=== PATIENT | female | born 1955 | race Hispanic/Latino ===

== ENCOUNTER 2020-12-14 15:21 | Outpatient (CLI) | payer MEDICARE, SELFPAY ==
--- NOTE | ~2020-12-14 | MM_ITS ---
EXAMINATION: MM screening christina BI w han HISTORY: Screening TECHNIQUE: Craniocaudal and mediolateral oblique 3-D tomosynthesis images were obtained and synthetic 2-D images were generated. CAD analysis was submitted and interpreted. COMPARISON: 11/13/2018 BREAST PARENCHYMAL COMPOSITION: There are scattered areas of fibroglandular density. FINDINGS: There is no evidence of suspicious mass, calcification, or architectural distortion to sugg est malignancy in either breast. There has been no suspicious interval change. IMPRESSION: 1. No mammographic evidence of malignancy. 2. Recommend routine screening mammography in one year. BI-RADS Category 1: Negative Reviewed, dictated and finalized at location A.
== END 2020-12-14 15:22 | disposition home or self-care (01) ==
LOC: ANHIMG 15:32
PROVIDERS: PCP Family Medicine; Visit Provider Physician Assistant
DX: Z12.31 Encounter for screening mammogram for malignant neoplasm of breast (principal)
CPT/HCPCS: 77063; 77067

== ENCOUNTER 2021-03-06 18:40 | Emergency (ER) | payer MEDICARE, SELFPAY ==
[2021-03-06 18:59] VITALS: BP 153/73; PULSE 78; RESP 18; TEMP 37.2; O2SAT 100
[2021-03-06 19:02] VITALS: BP 153/73; PULSE 78; RESP 18; TEMP 37.2; O2SAT 100
--- NOTE | 2021-03-06 19:07 | ED.GENADULT ---
HPI - General Adult General Chief complaint: Medical Clearance Stated complaint: Blood Pressure Source: patient and RN notes reviewed Limitations: no limitations History of Present Illness HPI narrative: The non-smoker/nondrinker patient-- on several meds including for HTN, HLD-- presents with elevated blood pressure and headache. Patient has about a day long history, gradual onset of mild frontal and bitemporal headache with associated with systolic blood pressures in the 150s. No fever, URI, noncompliance[losartan dose is 80 ], speech?visual changes, lateralizing weakness, seizure . She did decrease [by half ] her losartan earlier in the year; she is concerned about her blood pressure. Her neurologic history is remarkable is that while residing in [place] years ago she was placed on antiepileptic medications, and had head CT then for unknown diagnosis. Vital signs remarkable for blood pressure systolics 150-180s / 70-80s Related Data Home Medications Medication Instructions Recorded Confirmed levetiracetam 250 mg PO DAILY 03/06/21 03/06/21 levothyroxine [Euthyrox] 25 mcg PO DAILY 03/06/21 03/06/21 simvastatin 20 mg PO DAILY 03/06/21 03/06/21 valsartan 80 mg PO DAILY 03/06/21 03/06/21 Allergies Allergy/AdvReac Type Severity Reaction Status Date / Time diclofenac Allergy Unknown Other Verified 03/06/21 18:49 fluconazole Allergy Unknown Other Verified 03/06/21 18:49 Review of Systems Review of Systems: General/Constitutional: No weight loss,fever Eyes: N0: Redness,discharge Ears/Nose/Throat: No: Epistaxis,ear discharge Respiratory: Denies: Hemoptysis Gastrointestinal: No Vomiting, Bleeding-rectal Skin: No Lumps, eruption Neurologic: No Focal Weakness,Sz Hematologic: Denies: Petechiae/Purpura Psychiatric: No: Suicida ideationl All Other Systems: Reviewed and Negative [facility] Comments At time of signature, agree with nursing past medical, surgical, social and family history. There is no relevant family history pertinent to the presenting complaint Exam Narrative: General Appearance: Well appearing, No distress EYE: PERRLA, Conjunctiva clear Ears: External ear normal Nose: Normal nose Mouth/Throat: Normal appearing, Normal lips Neck: Supple Respiratory: Airway patent, No respiratory distress Cardiovascular: RRR Abdomen: Soft, Non-tender, Musculoskeletal: Full ROM Skin: Warm, Dry Neurological: A&O x3, CN II-X intact Psychiatric: Normal mood, Normal affect Course Vital Signs Vital signs: Vital Signs Temperature 98.9 F 03/06/21 18:59 Pulse Rate 78 03/06/21 18:59 Respiratory Rate 18 03/06/21 18:59 Blood Pressure 153/73 H 03/06/21 18:59 Pulse Oximetry 100 03/06/21 18:59 Temperature 98.9 F 03/06/21 19:02 Pulse Rate 78 03/06/21 19:02 Respiratory Rate 18 03/06/21 19:02 Blood Pressure 153/73 H 03/06/21 19:02 Pulse Oximetry 100 03/06/21 19:02 Medical Decision Making Vital Signs Vital Signs: Vital Signs Temperature 98.9 F 03/06/21 18:59 Pulse Rate 78 03/06/21 18:59 Respiratory Rate 18 03/06/21 18:59 Blood Pressure 153/73 H 03/06/21 18:59 Pulse Oximetry 100 03/06/21 18:59 Temperature 98.9 F 03/06/21 19:02 Pulse Rate 78 03/06/21 19:02 Respiratory Rate 18 03/06/21 19:02 Blood Pressure 153/73 H 03/06/21 19:02 Pulse Oximetry 100 03/06/21 19:02 Discharge Plan Discharge Clinical Impression: Labile hypertension, Headache disorder Patient Disposition: Home, Self-Care Condition: Stable Instructions: Acute Headache (ED), Hypertension (ED) Additional Instructions: See your PMD regarding blood pressure and headache follow-up You may continue your valsartan, taking an additional half dose for persistent elevations of home blood pressures You declined hospital/CT scanning referral made but may return there anytime if worsens Prescriptions: New ncjggxvbur-[id number]-ofgg [Fioricet] 50-300-40 mg capsule
== END 2021-03-06 19:44 | disposition home or self-care (01) ==
PROVIDERS: Emergency Provider Emergency Medicine
DX: I10 Essential (primary) hypertension (principal); R51.9 Headache, unspecified; E78.00 Pure hypercholesterolemia, unspecified; G40.909 Epilepsy, unspecified, not intractable, without status epilepticus
CPT/HCPCS: 99213; G0463

== ENCOUNTER 2021-03-22 10:37 | Outpatient (CLI) | payer MEDICARE, SELFPAY ==
[2021-03-22 11:29] LABS: Alanine Aminotransferase 27 U/L (4-35); Albumin Level 4.7 g/dL (3.5-5.1); Alkaline Phosphatase 76 U/L (38-126); Anion Gap 9 mmol/L (8-16); Aspartate Amino Transferase 34 U/L (14-36); Bilirubin,Total 0.5 mg/dL (0.2-1.3); Blood Urea Nitrogen 8 mg/dL (7-17); Calcium 9.2 mg/dL (8.4-10.2); Carbon Dioxide 26 mmol/L (22-30); Chloride 104 mmol/L (98-107); Cholesterol 179 mg/dL (0-200); Estimated Glomerular Filt Rate > 60; Glucose 109 mg/dL (65-110); HDL Direct 59 mg/dL; Potassium 3.9 mmol/L (3.4-5.0); Sodium 139 mmol/L (137-145); Triglycerides 217 mg/dL (<150)
[2021-03-22 11:40] LABS: LDL Cholesterol Direct 80 mg/dL
== END 2021-03-22 10:38 | disposition home or self-care (01) ==
PROVIDERS: PCP Physician Assistant; Visit Provider Physician Assistant
DX: R73.03 Prediabetes (principal); I10 Essential (primary) hypertension; E03.9 Hypothyroidism, unspecified
CPT/HCPCS: 36415; 80053; 80061; 83036; 84443

== ENCOUNTER 2021-05-31 16:40 | Emergency (ER) | payer MEDICARE, MEDICAID, SELFPAY ==
--- NOTE | ~2021-05-31 | XR_ITS ---
EXAMINATION: XR chest 1V portable INDICATION: Chest pain TECHNIQUE: Portable AP chest at 2012 hours COMPARISON: 06/30/2015 FINDINGS: The lungs are free of acute opacities. There is no pleural effusion or pneumothorax. The ca rdiomediastinal silhouette is normal. IMPRESSION: 1. No acute cardiopulmonary abnormality. Reviewed, dictated and finalized at location F. WORKER
--- NOTE | ~2021-05-31 | CT_ITS ---
EXAMINATION: CT abdomen pelvis w con INDICATION: Right upper quadrant pain TECHNIQUE: Computed tomographic images of the abdomen and pelvis were obtained after the administrati on of 100 cc of Omnipaque 350 intravenous contrast. The dose-length product (DLP) was 544.86 mGy-cm. Automated exposure control and iterative reconstruction technique were employed. COMPARISON: 06/18/2013 FINDINGS: Minimal dependent atelectasis is present in the lung bases. The heart size is normal. Cysts of the liver measure up to 2.6 cm in the right hepatic lobe. The spleen, pancreas, gallbladder, and adrenal glands are normal. The kidneys are unremarkable. The appendix is normal. No pathologically en larged abdominal or pelvic lymph nodes are identified. There is no free intraperitoneal gas or eviden ce of bowel obstruction. A moderate volume of colonic stool is present. There is a moderate amount of formed stool in the distal small bowel, consistent with slow transit. There is moderate lumbar spond ylosis. IMPRESSION: 1. Constipation. Reviewed, dictated and finalized at location F. CLABLE MATERIALS DISTRIBUTOR IMPRESSION: 1. Constipation.
--- NOTE | ~2021-05-31 | CT_ITS ---
EXAMINATION: CT brain wo con INDICATION: Headache COMPARISON: None TECHNIQUE: Standard unenhanced head CT. The dose-length product (DLP) was 605.33 mGy-cm. The mA was a djusted according to patient size. Iterative reconstruction technique was employed. FINDINGS: There is no acute intraparenchymal hemorrhage. No evidence of mass lesion. No evidence of a cute infarction. There is mild periventricular and subcortical hypodensity probably related to small vessel ischemic disease. There is mild prominence of the sulci and ventricles related to cerebral atr ophy. Intracranial calcified cerebral atherosclerosis is noted. There are no extra-axial collections. There is no mass effect or midline shift. The orbits and soft tissues are unremarkable. There is mil d mucosal thickening of the paranasal sinuses. IMPRESSION: 1. No acute intracranial abnormality. 2. Age related findings. Reviewed, dictated and finalized at location F. RVISOR COMMUNICATIONS AND SIGNALS
[2021-05-31 16:45] VITALS: BP 160/88; PULSE 73; RESP 18; TEMP 36.9; O2SAT 100
--- NOTE | 2021-05-31 20:03 | ECG_ITS ---
Measurements Intervals [place] Rate: 65 P: 40 NC: 162 QRS: -35 QRSD: 92 T: 30 QT: 403 QTc: 419 Interpretive Statements SINUS RHYTHM LEFT AXIS DEVIATION BASELINE ARTIFACT- I, III, AVR, AVL, AVF BORDERLINE ECG Electronically Signed On 06-01-2021 6:28:41 CONTACT CLERK by Fab Todd D.O.
--- NOTE | 2021-05-31 20:05 | ED.GENADULT ---
HPI - General Adult General Chief complaint: Headache Stated complaint: BP 155/83 SENT IN BY MD Time Seen by Provider: 05/31/21 19:49 Source: patient and family Mode of arrival: ambulatory Limitations: no limitations History of Present Illness HPI narrative: Patient is 66 years old female brought to the emergency room by her daughter because of elevated blood pressure, frontal headache, right upper quadrant pain for the last 7 days, intermittent. Patient is on losartan, history of hyper tension, hyperlipidemia and hypothyroidism. Currently patient denying any fever, chills, nausea, vomiting, diarrhea, constipation, urinary symptoms, chest pain or shortness of breath. Patient reports getting headaches with elevated blood pressure. Related Data Home Medications Medication Instructions Recorded Confirmed levetiracetam 250 mg PO DAILY 03/06/21 03/06/21 levothyroxine [Euthyrox] 25 mcg PO DAILY 03/06/21 03/06/21 simvastatin 20 mg PO DAILY 03/06/21 03/06/21 valsartan 80 mg PO DAILY 03/06/21 03/06/21 Allergies Allergy/AdvReac Type Severity Reaction Status Date / Time diclofenac Allergy Unknown Other Verified 05/31/21 21:15 fluconazole Allergy Unknown Other Verified 05/31/21 21:15 Review of Systems Review of Systems: CONSTITUTIONAL: Denies fever, chills, or sweats. EYES: Denies visual changes, redness, or discharge. ENT: Denies rhinorrhea, congestion, sore throat, or otalgia. CARDIOVASCULAR: Denies chest pain, palpitations, or edema. RESPIRATORY: Denies cough or dyspnea. GASTROINTESTINAL: Right upper quadrant pain GENITOURINARY: Denies dysuria or hematuria. SKIN: Denies rash or itching. MUSCULOSKELETAL: Denies back pain, joint pain, or myalgia. NEUROLOGIC: Complaining of frontal headache PSYCHIATRIC: Denies anxiety or depression. Exam Narrative: General appearance: Well-developed, well-nourished Skin: Normal color Head: Normocephalic, nontraumatic Eyes: Clear conjunctiva ENT: Oropharynx normal, ears normal, nose normal Neck: Supple, nontender Chest and respiratory: Airway patent, no respiratory distress, no accessory muscle use Heart: Regular rate/rhythm Abdomen: Soft, mild tenderness right upper quadrant, no organomegaly, quiet bowel sounds Vascular: Normal peripheral pulses, normal capillary refill. Musculoskeletal: Normal range of motion, nontender back Neurologic: Alert and oriented ?3, TAXI PROPRIETOR is normal as tested, no gross motor deficit Course Course Emergency Course: Stable Vital Signs Vital signs: Vital Signs Temperature 36.9 C 05/31/21 16:45 Pulse Rate 73 05/31/21 16:45 Respiratory Rate 18 05/31/21 16:45 Blood Pressure 160/88 H 05/31/21 16:45 Pulse Oximetry 100 05/31/21 16:45 Temperature 36.9 C 05/31/21 16:45 Pulse Rate 73 05/31/21 16:45 Respiratory Rate 18 05/31/21 16:45 Blood Pressure 160/88 H 05/31/21 16:45 Pulse Oximetry 100 05/31/21 16:45 Medical Decision Making Vital Signs Vital Signs: Vital Signs Temperature 36.9 C 05/31/21 16:45 Pulse Rate 73 05/31/21 16:45 Respiratory Rate 18 05/31/21 16:45 Blood Pressure 160/88 H 05/31/21 16:45 Pulse Oximetry 100 05/31/21 16:45 Temperature 36.9 C 05/31/21 16:45 Pulse Rate 73 05/31/21 16:45 Respiratory Rate 18 05/31/21 16:45 Blood Pressure 160/88 H 05/31/21 16:45 Pulse Oximetry 100 05/31/21 16:45 Imaging Data My impression: Impressions Chest X-Ray 05/31/21 20:20 IMPRESSION: 1. No acute cardiopulmonary abnormality. Head CT 05/31/21 21:33 IMPRESSION: 1. No acute intracranial abnormality. 2. Age related findings. Abdomen/Pelvis CT 05/31/21 22:14 IMPRESSION: 1. Constip
[2021-05-31 20:51] VITALS: BP 144/70; PULSE 71; RESP 16; O2SAT 100
[2021-05-31 20:58] LABS: Basophils Percent Auto 0.7 % (0.2-1.2); Eosinophils Absolute Auto 0.1 K/mm3 (0-0.3); Eosinophils Percent Auto 2.3 % (0-4.4); Hematocrit 43.3 % (37.0-47.0); Hemoglobin 14.8 g/dL (12.0-15.0); Immature Granulocyte Absolute 0.01 K/mm3 (0.00-0.031); Immature Granulocyte Percent A 0.2 % (0-0.5); Lymphocytes Absolute Auto 2.68 K/mm3 (0.9-3.2); Lymphocytes Percent Auto 44.3 % (18.3-44.2); Mean Corpuscular HGB Conc 34.2 g/dl (32-36); Mean Corpuscular Hemoglobin 31.2 pg (26-34); Mean Corpuscular Volume 91.2 fl (80-100); Mean Platelet Volume 12.1 fl (7.4-10.4); Monocytes Absolute Auto 0.7 K/mm3 (0.1-0.6); Monocytes Percent Auto 11.4 % (2.6-8.5); Neutrophils Absolute Auto 2.5 K/mm3 (1.3-6.7); Neutrophils Percent Auto 41.1 % (45.5-73.1); Platelet Count Result 214 k/mm3 (150-375); Red Blood Count 4.75 M/mm3 (4.2-5.4); Red Cell Distribution Width 12.1 % (11.5-14.5); White Blood Count 6.1 K/mm3 (4.5-10.0)
[2021-05-31 21:01] LABS: Add Urine Microscopic? YES; Appearance Urine Clear (Clear); Bilirubin Urine Negative (Negative); Blood Urine 1+ (Negative); Color Urine Colorless (Yellow); Glucose Urine UA Negative (Negative); Ketones Urine Negative (Negative); Leukocyte Esterase Ur Negative LEU/UL (Negative); Nitrate Urine Negative (Negative); Protein Urine Negative (Negative); Specific Grav Ur 1.005 (1.001-1.035); Urobilinogen Urine Negative mg/dL (<2.0); WBC Urine 0-3 /hpf
[2021-05-31] MEDS: MORPHINE SULFATE (*CRX) 4 MG/ML INJ IV PUSH (21:02)
[2021-05-31] MEDS: SODIUM CHLORIDE 0.9% IV 1,000 ML 999 ML IV CONT (21:03)
[2021-05-31] MEDS: ONDANSETRON INJ 4 MG/2 ML VIAL IV PUSH (21:03)
[2021-05-31 21:08] LABS: Alanine Aminotransferase 28 U/L (4-35); Albumin Level 5.1 g/dL (3.5-5.1); Alkaline Phosphatase 83 U/L (38-126); Anion Gap 12 mmol/L (8-16); Aspartate Amino Transferase 39 U/L (14-36); Bilirubin,Total 0.7 mg/dL (0.2-1.3); Blood Urea Nitrogen 8 mg/dL (7-17); Calcium 9.9 mg/dL (8.4-10.2); Carbon Dioxide 25 mmol/L (22-30); Chloride 102 mmol/L (98-107); Estimated CRCL calculation 78 ml/min; Estimated Glomerular Filt Rate > 60; Glucose 101 mg/dL (65-110); Potassium 4.2 mmol/L (3.4-5.0); Sodium 139 mmol/L (137-145)
[2021-05-31 21:20] LABS: NT Pro B Type Natriuretic Pept 86 pg/mL (5-100); Troponin I < 0.012 ng/mL (0.000-0.034)
[2021-05-31 21:49] LABS: Lipase 115 U/L (23-300)
[2021-05-31 23:11] VITALS: BP 145/76; PULSE 65; RESP 18; O2SAT 100
== END 2021-05-31 23:13 | disposition home or self-care (01) ==
PROVIDERS: Emergency Provider Emergency Medicine; PCP Physician Assistant
DX: I10 Essential (primary) hypertension (principal); R51.9 Headache, unspecified; K59.00 Constipation, unspecified; E78.5 Hyperlipidemia, unspecified; E03.9 Hypothyroidism, unspecified
CPT/HCPCS: 36415; 70450; 71045; 74177; 80053; 81001; 83690; 83880; 84484; 85025; 93005; 96361; 96374; 96375; 99284; J2270; J2405; J7030; Q9967

== ENCOUNTER 2022-03-29 11:16 | Outpatient (CLI) | payer MEDICARE, MEDICAID, SELFPAY ==
--- NOTE | ~2022-03-29 | US_ITS ---
EXAMINATION: US thyroid DATE: 03/29/2022 11:57 INDICATION: Goiter. TECHNIQUE: Multiple ultrasound images of the thyroid were obtained. COMPARISON: None. FINDINGS: The right thyroid lobe measures 3.5 x 1.5 x 1.7 cm. The left thyroid lobe measures 5.3 x 1.5 x 2.7 c m. The thyroid demonstrates heterogeneous echogenicity. Vascularity is normal. In the left thyroid l obe, there is a 3.6 cm solid, hyperechoic, wider than tall nodule with smooth margin without echogeni c foci (TI-RADS TR3). IMPRESSION: 1. Left thyroid nodule. Ultrasound-guided fine-needle aspiration is recommended. Reviewed, dictated and finalized at location A. INE OPERATOR ASSISTANT IMPRESSION: 1. Left thyroid nodule. Ultrasound-guided fine-needle aspiration is recommended .
== END 2022-03-29 11:17 | disposition home or self-care (01) ==
PROVIDERS: PCP Physician Assistant; Visit Provider Physician Assistant
DX: E04.1 Nontoxic single thyroid nodule (principal)
CPT/HCPCS: 76536

== ENCOUNTER 2022-04-17 12:17 | Outpatient (CLI) | payer MEDICARE, MEDICAID, SELFPAY ==
--- NOTE | ~2022-04-17 | US_ITS ---
EXAMINATION: US FNA w image guidance DATE: 04/17/2022 14:04 INDICATION: Nontoxic single thyroid nodule TECHNIQUE: A time-out was performed to verify the patient's name, date of , and procedure to be performed . The procedure and its benefits and risks were discussed with the patient. Risks specifically discus sed included bleeding and infection. The patient understood the risks and agreed to proceed. The neck was prepped and draped in the usual sterile manner. 3 mL 1% lidocaine was used for local anesthesia . 6 passes were made with a 25G needle into the lesion. Appropriate needle location was documented with continuous sonographic guidance. A sterile bandage was applied. There were no immediate compli cations. FINDINGS: Grayscale ultrasound images demonstrate biopsy needles advanced into the previously noted 3.6 cm alden d hyperechoic TI RADS 3 left thyroid nodule.. IMPRESSION: 1. Successful ultrasound-guided fine needle aspiration of the 3.6 cm TI RADS 3 left thyroid nodule o f concern. Reviewed, dictated and finalized at location A. GER CIVIL IMPRESSION: 1. Successful ultrasound-guided fine needle aspiration of the 3.6 cm TI RADS 3 left thyroid nodule of concern.
== END 2022-04-17 12:18 | disposition home or self-care (01) ==
LOC: ANHIMG 12:26
PROVIDERS: PCP Physician Assistant; Visit Provider Physician Assistant
DX: E04.1 Nontoxic single thyroid nodule (principal)
CPT/HCPCS: 10005; 88173; 88305

== ENCOUNTER 2022-06-21 12:03 | Outpatient (CLI) | payer MEDICARE, MEDICAID, SELFPAY ==
--- NOTE | ~2022-06-21 | XR_ITS ---
AP and oblique views of the bilateral ribs Clinical History: Pain Findings: No rib fracture is seen. Osseous alignment is anatomic. Lungs are clear, without focal cons olidation or pleural effusion. Cardiomediastinal contour is within normal limits. Soft tissues are un remarkable. Impression: No rib fracture is seen. Reviewed, dictated and finalized at [facility]. ATOR SPECIALIST COMMUNICATIONS Impression: No rib fracture is seen.
== END 2022-06-21 12:04 | disposition home or self-care (01) ==
LOC: ANHIMG 12:06
PROVIDERS: PCP Physician Assistant; Visit Provider Physician Assistant
DX: R07.81 Pleurodynia (principal)
CPT/HCPCS: 71110

== ENCOUNTER 2024-11-06 10:01 | Outpatient (CLI) | payer MEDICARE, MEDICAID, SELFPAY ==
--- NOTE | ~2024-11-06 | MM_ITS ---
EXAMINATION: MM screening christina BI w han HISTORY: Screening mammogram TECHNIQUE: Craniocaudal and mediolateral oblique 3-D tomosynthesis images were obtained and synthetic 2-D images were generated. CAD analysis was submitted and interpreted. COMPARISON: 12/14/2020 BREAST PARENCHYMAL COMPOSITION:Not Dense. There are scattered areas of fibroglandular density. FINDINGS: No suspicious mass, calcification, or architectural distortion are identified in either deniz ast to suggest malignancy. There has been no suspicious interval change. IMPRESSION: No mammographic evidence of malignancy. Recommend routine screening mammography in one year. BI-RADS Category 1: Negative Reviewed, dictated and finalized at location .
--- NOTE | ~2024-11-06 | DEXA_ITS ---
Bone Density Report Name: HOWARD JACKSON Age: 69 Sex: Female Ethnicity: Date of : 1955 Indication: postmenopausal; screening for osteoporosis; seizure disorder; Referring Provider: WARNER, HOLLY Study: Bone densitometry was performed. Exam Date: November 06, 2024 Accession number: [id number] Bone Density: Region BMD T-score Z-score Classification AP Spine(L1-L4) 0.661 -3.5 -1.3 Osteoporosis Femoral Neck (Left) 0.625 -2.0 -0.3 Osteopenia Total Hip (Left) 0.833 -0.9 0.6 Normal Femoral Neck (Right) 0.646 -1.8 -0.1 Osteopenia Total Hip (Right) 0.925 -0.1 1.3 Normal Total Hip Mean 0.879 -0.5 1.0 Normal World Health Organization criteria for BMD impression classify patients as: Normal (T-score at or above -1.0), Osteopenia (T-score between -1.0 and -2.5), or Osteoporosis (T-score at or below -2.5). 10-year Fracture Risk: FRAX not reported because: Some T-score for Spine Total or Hip Total or Femoral Neck at or below -2.5 Clinical Information Provided by Patient: Has the following medical conditions: Any Seizure Disorders Patient maximum height was 63 Menopause Age: 53 Onset of menses at age 11 Number of children 6 Impression: The patient has osteoporosis, based on the Total Spine T-score. Discussion: INCREASED RISK OF FRACTURE. BONE DENSITY IS UNDESIRABLY LOW AT ONE OR MORE SKELETAL SITES, CONSISTENT WITH POSTMENOPAUSAL OSTEOPOROSIS. This patient's lowest T-score meets the World Health Organization's (WHO) criteria for osteoporosis at one or more sites (T-score -2.5 or below). In untreated patients, the risk of osteoporotic fracture increases approximately two-fold for each 1.0 SD decrease in T-score. Low bone density is not the only risk factor for fracture; also consider factors such as patient's age, frailty or poor health, risk of falling, risk of injury, previous osteoporotic fracture, family history of osteoporosis, cigarette smoking, low body weight, etc. Not everyone with low bone mineral density has osteoporosis; osteomalacia and other metabolic bone disorders should also be considered. Patients who have osteoporosis should be evaluated for specific diseases and conditions (secondary causes) that may cause or contribute to bone loss. The [place] [employer] Endocrinologists (AACE) and National Osteoporosis Foundation (NOF) recommend pharmacologic intervention for all postmenopausal women whose T-score is in this range. The patient should follow a healthful lifestyle (good nutrition with adequate calcium and vitamin D, and appropriate weight-bearing exercise). Follow-Up: Consider a repeat BMD and Vertebral Fracture Assessment (VFA) exam in 2 years or sooner if medically necessary, to reassess this patient's status. Reported by: GABRIELE on 11/06/2024 10:50:00 AM. Reviewed, dictated and finalized at location A.
== END 2024-11-06 10:02 | disposition home or self-care (01) ==
LOC: ANHIMG 10:03
PROVIDERS: PCP Physician Assistant; Visit Provider Physician Assistant
DX: M81.0 Age-related osteoporosis without current pathological fracture (principal); M85.852 Other specified disorders of bone density and structure, left thigh; M85.851 Other specified disorders of bone density and structure, right thigh; Z12.31 Encounter for screening mammogram for malignant neoplasm of breast
CPT/HCPCS: 77063; 77067; 77080